=== PATIENT | male | born 1970 ===

== ENCOUNTER 2016-11-22 10:38 | Emergency (ER) | payer MEDICARE, MEDICAID ==
--- NOTE | 2016-11-22 11:22 | UC ---
Abdominal Pain Male HPI - History of Current Complaint Chief Complaint: UCGI Stated Complaint: VOMITTING Time Seen by Provider: 11/22/16 10:50 Hx Obtained From: Patient Onset/Duration: Gradual Onset, Lasting Days - 5, Still Present Timing: Constant Severity Initially: Moderate Severity Currently: Moderate Location: Diffuse Radiates: No Character: Aching Aggravating Factor(s):: Food Alleviating Factor(s): Nothing Associated Signs And Symptoms: Positive: Vomiting - Allergies/Home Medications Allergies/Adverse Reactions: Allergies Allergy/AdvReac Type Severity Reaction Status Date / Time No Known Allergies Allergy Verified 11/22/16 10:48 Home Medications: Home Medications Furosemide TAB* [Lasix TAB*] 40 mg PO DAILY 11/22/16 [History Confirmed 11/22/16 ] Lansoprazole CAP (NF) [Prevacid CAP (NF)] 30 mg PO DAILY 11/22/16 [History Confirmed 11/22/16] Levothyroxine TAB* [Synthroid TAB*] 50 mcg PO DAILY 11/22/16 [History Confirmed 11/22/16] Mirtazapine TAB* [Remeron TAB*] 15 mg PO BEDTIME 11/22/16 [History Confirmed 09/09] Potassium Chloride Microencaps [Klor-Con M10] 10 meq PO DAILY 11/22/16 [History Confirmed 11/22/16] Varenicline Tartrate [Chantix 0.5 MG TAB] DAILY 11/22/16 [History] PMH/Surg Hx/FS Hx/Imm Hx Endocrine History Of: Reports: Thyroid Disease Cardiovascular History Of: Reports: Cardiac Disorders - VALVE PROBLEM, Hypertension - Surgical History Surgical History: Yes Surgery Procedure, Year, and Place: HIP REPLACMENT-RIGHT. CARDIAC SURGERY 5 YEARS OLD - Family History Known Family History: Positive: Hypertension - Social History Alcohol Use: None Substance Use Type: None Smoking Status (MU): Light Every Day Tobacco Smoker Type: Cigarettes Amount Used/How Often: 1/2 PPD Have You Smoked in the Last Year: Yes Household Exposure Type: Cigarettes Review of Systems Constitutional: Negative Skin: Negative Eyes: Negative ENT: Negative Gastrointestinal: Abdominal Pain, Vomiting All Other Systems Reviewed And Are Negative: Yes Physical Exam Triage Information Reviewed: Yes Appearance: Well-Appearing, No Pain Distress, Well-Nourished Vital Signs: Initial Vital Signs Temp 97 F 11/22/16 10:45 Pulse 75 05/02/17 10:45 Resp 20 11/22/16 10:45 BP 107/65 11/22/16 10:45 Pulse Ox 100 11/22/16 10:45 Vital Signs Reviewed: Yes Eye Exam: Normal Eyes: Positive: Conjunctiva Clear ENT: Positive: Normal ENT inspection, Hearing grossly normal, Pharynx normal Respiratory Exam: Normal Respiratory: Positive: Chest non-tender, Lungs clear, Normal breath sounds Cardiovascular: Positive: RRR, No Murmur, Pulses Normal Abdomen Description: Positive: Soft, Other: - + diffuse tenderness. Negative: CVA Tenderness (R), CVA Tenderness (L), Distended, Guarding Bowel Sounds: Positive: Present Musculoskeletal Exam: Normal Musculoskeletal: Positive: Strength Intact, ROM Intact Skin Exam: Normal Abd Pain Male Course/Dx - Differential Dx/Clinical Impression Provider Diagnoses: Gastritis. abdominal pain Discharge - Discharge Plan Condition: Stable Disposition: HOME Prescriptions: Omeprazole 40 mg PO DAILY #30 cap Patient Education Materials: Gastritis (ED) Additional Instructions: will check CMP , Amylase and Lipase , to make sure your liver and pancreas if functioning well, call the office in one day for your test results follow up with your pcp in one week go to ED if getting worse
[2016-11-22 11:30] VITALS: BP 107/65
--- NOTE | 2016-11-22 11:30 | RAD ---
Indication: Epigastric abdominal pain, vomiting. Comparison: None. Technique: Supine abdomen. Report: Unremarkable bowel gas pattern. Moderate stool in the colon. No suspicious calcifications or mass effect. Grossly clear lung bases. Dysplastic RIGHT hip with partially flattened morphology of the femoral head. 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 Mild bilateral superior hip joint space narrowing with associated acetabular roof subchondral sclerosis. IMPRESSION: No acute abdominal pelvic pathologic process evident.
[2016-11-22 18:39] LABS: Albumin 4.3 g/dL (3.2-5.2); Calcium 9.6 mg/dL (8.6-10.3); EGFR African American 127.7 (>60); EGFR Non-African American 99.3 (>60); Globulin 2.4 g/dL (2-4); Potassium 4.6 mmol/L (3.5-5.0); Total Bilirubin 0.5 mg/dL (0.2-1.0); Total Protein 6.7 g/dL (6.4-8.9)
== END 2016-11-22 11:49 | disposition home or self-care (01) ==
LOC: UCCORT 10:38
DX: K29.70 Gastritis, unspecified, without bleeding (principal); R10.84 Generalized abdominal pain; E07.9 Disorder of thyroid, unspecified; I10 Essential (primary) hypertension; Z96.641 Presence of right artificial hip joint; F17.210 Nicotine dependence, cigarettes, uncomplicated
CPT/HCPCS: 36415; 74000; 80053; 82150; 83690; 99212; G0463